=== PATIENT | male | born 1945 | race Caucasian/White ===

== ENCOUNTER 2019-07-10 03:39 | Emergency (ER) | payer MEDICARE ==
[~2019-07-10] VITALS: Ht 182.9 cm; Wt 108.9 kg
[2019-07-10] MEDS ORDERED: KETOROLAC TROMETHAMINE 30 MG/ML VIAL IV STA (04:02)
[2019-07-10] MEDS ORDERED: METHYLPREDNISOLONE SOD SUCC 125 MG/2ML VIAL IV ONE (04:15)
[2019-07-10] MEDS ORDERED: DIAZEPAM INJ 5 MG/ML 2 ML IV ONE (04:15)
--- NOTE | 2019-07-10 05:49 | Diagnostic Imaging Report ---
EXAM: Lumbar spine radiographs-5 views INDICATION: Back pain. COMPARISON: None FINDINGS: BONES: Minimal anterolisthesis of L4 and L5. No acute displaced fractures. Vertebral body heights are preserved. DISCS: Mild degenerative disc changes, most pronounced at L5-S1. JOINTS: Moderate facet degenerative changes. SOFT TISSUES: Scattered aortic atherosclerotic vascular calcifications. IMPRESSION: No acute radiographic abnormality. Mild degenerative disc and moderate facet degenerative changes of the lumbar spine. Signed by: Dr. Dudley Bronson MD on 07/10/2019 5:45 AM
[2019-07-10] MEDS ORDERED: ULTRAM50 MG PO (05:53)
[2019-07-10] MEDS ORDERED: ROBAXIN-750750 MG PO (05:53)
[2019-07-10 06:44] VITALS: BP 147/77
== END 2019-07-10 06:48 | disposition home or self-care (01) ==
LOC: ER 03:39
DX: S39.012A Strain of muscle, fascia and tendon of lower back, initial encounter (principal); M51.36 Other intervertebral disc degeneration, lumbar region; M62.830 Muscle spasm of back
CPT/HCPCS: 72110; 99284; J1885; J2930; J3360

== ENCOUNTER → 2020-05-08 | Outpatient (CLI) | payer MEDICARE ==
[~2020-05-08] MED LIST: GADOBENATE DIMEGLUMINE 1 ML IV ONE; ROBAXIN-750750 MG PO; SODIUM CHLORIDE 0.9% 50ML 50 ML ONE; ULTRAM50 MG PO
== END ==
LOC: MRI 07:38
PROVIDERS: ATTEND Internal Medicine
DX: I70.0 Atherosclerosis of aorta (principal)
CPT/HCPCS: 74185; A9577